=== PATIENT | male | born 1995 | race African-American/Black ===

== ENCOUNTER 2021-12-26 15:46 | Emergency (ER) | payer SELFPAY ==
[~2021-12-26] VITALS: Ht 167.6 cm; Wt 61.2 kg
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
[2021-12-26] MEDS ORDERED: MORPHINE SULFATE INJ 4 MG/ML DISP.SYRIN ONE (16:53)
[2021-12-26] MEDS ORDERED: ONDANSETRON 4 MG TAB.RAPDIS ONE (16:53)
[2021-12-26] MEDS ORDERED: ONDANSETRON 4 MG TAB.RAPDIS SL ONE (17:00)
[2021-12-26] MEDS ORDERED: MORPHINE SULFATE INJ 10 MG/ML DISP.SYRIN IM ONE (17:00)
[2021-12-26] MEDS ORDERED: ACETAMINOPHEN ES 500 MG TABLET ONE (18:41)
[2021-12-26] MEDS ORDERED: KETOROLAC TROMETHAMINE INJ 30 MG/ML VIAL ONE (18:56)
[2021-12-26] MEDS ORDERED: ACETAMINOPHEN 325 MG TABLET PO ONE (19:00)
[2021-12-26] MEDS ORDERED: KETOROLAC TROMETHAMINE INJ 60 MG/2 ML VIAL IM ONE (19:00)
--- NOTE | 2021-12-26 19:00 | NUR ---
DR SPAULDING AT BEDSIDE
[2021-12-26] MEDS ORDERED: CARI350T PO (19:11)
[2021-12-26] MEDS ORDERED: NAPR-1164 PO (19:11)
[2021-12-26 19:18] VITALS: BP 138/86
--- NOTE | 2021-12-26 19:18 | NUR ---
Patient discharged to home in stable condition. Written and verbal after care instructions given. Patient verbalizes understanding of instruction.
== END 2021-12-26 19:18 | disposition home or self-care (01) ==
LOC: ER 16:05
DX: S29.012A Strain of muscle and tendon of back wall of thorax, initial encounter (principal); S16.1XXA Strain of muscle, fascia and tendon at neck level, initial encounter; S00.11XA Contusion of right eyelid and periocular area, initial encounter; M62.838 Other muscle spasm; Z86.19 Personal history of other infectious and parasitic diseases; V49.9XXA Car occupant (driver) (passenger) injured in unspecified traffic accident, initial encounter; Y93.89 Activity, other specified; Y92.488 Other paved roadways as the place of occurrence of the external cause; Y99.8 Other external cause status
CPT/HCPCS: 70450; 70486; 71045; 72074; 72125; 96372 ×2; 99284; J1885; J2270; Q0162